=== PATIENT | female | born 1995 | race Two or more races ===

== ENCOUNTER 2016-10-03 05:57 | Outpatient (CLI) | payer OTHER ==
[2016-10-03 06:47] VITALS: BMI 48.0
[2016-10-03 07:08] LABS: PH,URINE 6.5 (5.0-8.0); URINE BILIRUBIN NEGATIVE (NEGATIVE); URINE BLOOD NEGATIVE (NEGATIVE); URINE GLUCOSE (UA) NEGATIVE (NEGATIVE); URINE LEUKOCYTE ESTERASE NEGATIVE (NEGATIVE); URINE NITRITE NEGATIVE (NEGATIVE); URINE PROTEIN NEGATIVE (NEGATIVE); URINE UROBILINOGEN NORMAL (0-1 mg/dl)
[2016-10-03 07:09] LABS: URINE APPEARANCE CLEAR; URINE COLOR YELLOW
[2016-10-03 07:14] LABS: URINE BACTERIA 0; URINE EPITHELIAL CELLS 0-2 /hpf; URINE RBC 0 /hpf; URINE WBC NEG /hpf
[2016-10-03] MEDS ORDERED: ACETAMINOPHEN 500 MG TABLET PO ONE (07:34)
== END 2016-10-03 07:44 | disposition home or self-care (01) ==
LOC: FBCOUT 05:57 → FBC 05:57 → FBCOUT 07:44
PROVIDERS: ATTEND Family Medicine
DX: O26.899 Other specified pregnancy related conditions, unspecified trimester (principal); R10.9 Unspecified abdominal pain; Z3A.00 Weeks of gestation of pregnancy not specified
CPT/HCPCS: 81001; 59025; A9270; G0463